=== PATIENT | female | born 1960 | race Two or more races ===

== ENCOUNTER 2024-10-27 12:58 | Emergency (ER) | payer OTHER ==
[~2024-10-27] VITALS: Ht 162.6 cm; Wt 52.2 kg
[2024-10-27 13:04] VITALS: BP 117/74; TEMP 98.3
[2024-10-27 15:26] VITALS: O2SAT 99
== END 2024-10-27 15:27 | disposition home or self-care (01) ==
LOC: ER 13:07
DX: S09.8XXA Other specified injuries of head, initial encounter (principal); R11.2 Nausea with vomiting, unspecified; Z60.2 Problems related to living alone; W18.2XXA Fall in (into) shower or empty bathtub, initial encounter; Y93.89 Activity, other specified; Y92.091 Bathroom in other non-institutional residence as the place of occurrence of the external cause; Y99.8 Other external cause status
CPT/HCPCS: 70450-TC; 72125-TC